=== PATIENT | female | born 2000 | race African-American/Black ===

== ENCOUNTER 2022-11-05 13:25 | Emergency (ER) | payer BC ==
[2022-11-05 13:36] VITALS: BP 121/78
--- NOTE | 2022-11-05 13:51 | ED Physician Documentation ---
PD HPI UPPER EXT INJURY - Stated complaint Stated Complaint: LT HAND LAC - Chief complaint Chief Complaint: Laceration PD PAST MEDICAL HISTORY - Allergies Allergies/Adverse Reactions: Allergies Allergy/AdvReac Type Severity Reaction Status Date / Time amoxicillin Allergy Unknown Verified 11/05/22 13:36 Results - Vitals Vitals: Oxygen O2 Source Room air Departure - Departure Disposition: Home, Self Care Clinical Impression: Laceration of left index finger Qualifiers: Encounter type: initial encounter Damage to nail status: without damage Foreign body presence: without foreign body Qualified Code(s): S61.211A - Laceration without foreign body of left index finger without damage to nail, initial encounter Condition: Stable Comments: The laceration on your middle finger will heal well with time. I do not rec ommend any sutures. I would simply wash it daily with warm soap and water, pat dry and then apply a simple antibiotic ointment such as bacitracin or triple antibiotic. A bandage should suffice. I would expect that this will heal well over the next week or so. Return to the ER if you have any concerns of infection, finger redness, increased pain or milky drainage from the wound Discharge Date/Time: 11/05/22 14:05
--- NOTE | 2022-11-05 13:57 | ED Physician Documentation ---
History of Present Illness - Stated complaint Stated Complaint: LT HAND LAC - Chief complaint Chief Complaint: Laceration - Additonal information Additional information: 22-year-old female presents emergency department for evaluation of a left middle finger laceration. Was using a knife yesterday when she accidentally stabbed the middle finger at the base near the webbing of the index and middle finger. Tetanus is up-to-date. She is right-hand dominant. Patient is reliable historian Review of Systems Constitutional: reports: Reviewed and negative Skin: reports: Laceration (s) PD PAST MEDICAL HISTORY - Allergies Allergies/Adverse Reactions: Allergies Allergy/AdvReac Type Severity Reaction Status Date / Time amoxicillin Allergy Unknown Verified 11/05/22 13:36 PD ED PE NORMAL - General General: Alert and oriented X 3, No acute distress - Derm Derm: Other (0.5 cm flap laceration base of left middle finger Radial side adjacent to the index finger. Normal flexion extension distally. Neurovascularly intact. No active bleeding.) Results - Vitals Vitals: Vital Signs - 24 hr 11/05/22 13:33 Temperature 36.4 C L Heart Rate 70 Respiratory 16 Rate Blood Pressure 121/78 O2 Saturation 100 Oxygen O2 Source Room air PD Medical Decision Making - ED course Complexity details: considered differential, d/w patient ED course: 22-year-old female who is up-to-date on tetanus presents emergency department for evaluation of a laceration to the base of the left middle finger near the webbing space of the index and middle finger. [id number]. This is a superficial laceration that I do not feel would benefit from closure with sutures. I discussed with patient routine wound care to include warm soap and water, antibiotic ointment. The usual emergent return precautions were discussed for concerns of infection Departure - Departure Disposition: 01 Home, Self Care Clinical Impression: Laceration of left index finger Qualifiers: Encounter type: initial encounter Damage to nail status: without damage Foreign body presence: without foreign body Qualified Code(s): S61.211A - Laceration without foreign body of left index finger without damage to nail, initial encounter Condition: Stable Record reviewed to determine appropriate education?: Yes Comments: The laceration on your middle finger will heal well with time. I do not recommend any sutures. I would simply wash it daily with warm soap and water, pat dry and then apply a simple antibiotic ointment such as bacitracin or triple antibiotic. A bandage should suffice. I would expect that this will heal well over the next week or so. Return to the ER if you have any concerns of infection, finger redness, increased pain or milky drainage from the wound
== END 2022-11-05 14:05 | disposition home or self-care (01) ==
LOC: ED 13:25
DX: S61.211A Laceration without foreign body of left index finger without damage to nail, initial encounter (principal); W26.0XXA Contact with knife, initial encounter; Y92.9 Unspecified place or not applicable
CPT/HCPCS: 99281; 99283